=== PATIENT | female | born 1960 | race Two or more races ===

== ENCOUNTER 2016-11-23 16:38 | Emergency (ER) | payer OTHER ==
[~2016-11-23] VITALS: Ht 129.5 cm; Wt 71.7 kg
[~2016-11-23 16:38] MED LIST: AFRIN NASAL SPR30 ML NASAL; ALBUTEROL SULF8.5 GM INH; ATARAX25 MG ORAL; AZITHROMYCIN250 MG ORAL; AZITHROMYCIN250 MG PO; COLACE250 MG PO; IBUPROFEN600 MG ORAL; PROMETHAZINE-D118 ML ORAL; TYLENOL EXTRA500 MG ORAL; VICODIN 5-5001 EACH PO
[2016-11-23] MEDS ORDERED: PROMETHAZINE-D118 ML ORAL (18:20)
[2016-11-23] MEDS ORDERED: PROAIR HFA8.5 GM INH (18:20)
[2016-11-23] MEDS ORDERED: PREDNISONE20 MG ORAL (18:20)
[2016-11-23 18:28] VITALS: BP 133/75
--- NOTE | 2016-11-23 21:38 | Emergency Room Report ---
History of Present Illness General Chief Complaint: Upper Respiratory Illness Source: Patient Present Illness [facility] The patient is a 56-year-old female presenting for 2 days of productive cough, subjective fevers, and myalgia. The patient states that she gets bronchitis annually and this feels the same. She denies any sick contacts or recent travel. The patient states that she experiences an 8/10 dull ache to the chest and back which occurs only with coughing. The patient has tried over-the- counter cough medications which have not helped. The patient denies other symptoms including nausea, vomiting, headache, dizziness, neck pain or stiffness , chest pain, shortness of breath Allergies: Coded Allergies: PENICILLINS (Verified Allergy, Unknown, Rash, 08/30/16) Patient History Past Medical History: see triage record Pertinent Family History: none Now: No Reviewed Nursing Documentation: PMH: Agreed, PSxH: Agreed Nursing Documentation-PMH Past Medical History: No History, Except For Hx Cardiac Problems: No - hysterectomy Hx Gastrointestinal Problems: Yes - gerd constipation Review of Systems All Other Systems: negative except mentioned in HPI Physical Exam Vital Signs Date Time Temp Pulse Resp B/P Pulse Ox O2 Delivery O2 Flow Rate FiO2 11/23/16 17:00 98.2 82 16 141/80 100 Room Air Sp02 EP Interpretation: reviewed, normal General Appearance: no apparent distress, alert, GCS 15, non-toxic Head: normocephalic, atraumatic Eyes: bilateral eye PERRL, bilateral eye normal inspection ENT: hearing grossly normal, normal pharynx, no angioedema, normal voice, uvula midline Neck: full range of motion, supple/symm/no masses Respiratory: chest non-tender, normal breath sounds, speaking full sentences, wheezing - minimal diffuse Cardiovascular #1: regular rate, rhythm, no edema Musculoskeletal: back normal, gait/station normal, normal range of motion, non- tender Neurologic: alert, oriented x3, responsive, motor strength/tone normal, sensory intact, speech normal Psychiatric: judgement/insight normal, memory normal, mood/affect normal, no suicidal/homicidal ideation Skin: normal color, no rash, warm/dry, well hydrated Lymphatic: no adenopathy Medical Decision Making PA Attestation Dr. Lomax is my supervising physician. Patient management was discussed with my supervising physician Diagnostic Impression: Primary Impression: Bronchitis ER Course The patient is a 56-year-old female presenting for 2 days of productive cough, subjective fevers, and myalgia Differential diagnosis include but not limited to pharyngitis, sinusitis, AOM, bronchitis, PNA PE: afebrile. No apparent distress. No TTP over maxillary or frontal sinuses. Lungs: minimal wheezing bilat. No accessory muscle use. Heart: RRR, no abnormal heart sounds Ears: external auditory canal clear. Non erythematous. Bilat TM intact. Cone of light present bilat. No bulging of TM. No serous fluid seen. no nasal D/C No tonsillar exudate. Uvula midline.Oropharynx non erythematous Chest x-ray is unremarkable The patient will be treated with a prescription for Prednisone, cough medication , and albuterol. ER precautions are given Chest X-Ray Diagnostic Results EP Interpretation: Yes Findings: no consolidation, no effusion, no pneumothorax, no acute cardiopulmonary disease Number of Views: 1 PA Scribe Text I am acting as scribe for my supervising physician. My supervising physician's interpretation of the chest xrays are there is no consolidation, no effusion, no acute cardiopulmonary disease, no pneumothorax Last Vital Signs Date Time Temp Pulse Resp B/P Pulse Ox O2 Delivery O2 Flow Rate FiO2 11/23/16 18:28 90 16 133/75 98 Room Air 11/23/16 18:28 97.9 Status: improved Disposition: HOME, SELF-CARE Condition: Improved Scripts D-Methorphan Hb/Prometh Hcl* (PROMETHAZINE-DM SYRUP*) 118 Ml Syrup 5 ML ORAL Q6H Y for For Cough, #118 ML 0 Refills Prov: TERZIAN,MARY P.A. 11/23/16 Prednisone* (PREDNISONE*) 20 Mg Tablet 20 MG ORAL DAILY, #5 TAB 0 Refills Prov: TERZIAN,MARY P.A. 11/23/16 Albuterol Sulfate* (PROAIR HFA*) 8.5 Gm Hfa.aer.ad 2 PUFFS INH Q6H, #8.5 GM 0 Refills Prov: TERZIAN,MARY P.A. 11/23/16 Referrals: [facility] (PCP) Patient Instructions: Acute Bronchitis Additional Instructions: I discussed my findings with the patient. All questions and concerns have been answered. Treatment and medication compliance have been addressed. I advised the patient that they need to follow up with PMD in 3-5 days. Return to ED if pain remains or worsens, cough worsens or remains, you notice blood in your sputum, you notice wheezing, you experience a fever, or if needed for any reason. Patient verbalized understanding of discharge instructions. MARY CARTER Nov 23, 2016 21:38
--- NOTE | 2016-11-24 10:04 | Diagnostic Imaging Report ---
Indication: COUGH Technique: One view of the chest Comparison: none Findings: Lungs and pleural spaces are clear. Heart size is normal . No significant change Impression: No acute process
[2016-11-24] MEDS ORDERED: ROBITUSSIN COU118 M4 PO (13:18)
[2016-11-24] MEDS ORDERED: GUAIFENESIN DM118 M1 ORAL (13:18)
== END 2016-11-23 18:28 | disposition home or self-care (01) ==
LOC: EMR 17:28
DX: J40 Bronchitis, not specified as acute or chronic (principal); Z90.710 Acquired absence of both cervix and uterus; K21.9 Gastro-esophageal reflux disease without esophagitis
CPT/HCPCS: 71010; 99284

== ENCOUNTER 2017-02-13 09:26 | Emergency (ER) | payer OTHER ==
[~2017-02-13] VITALS: Ht 165.1 cm; Wt 72.6 kg
[~2017-02-13 09:26] MED LIST changes: +GUAIFENESIN DM118 M1 ORAL; +PREDNISONE20 MG ORAL; +PROAIR HFA8.5 GM INH; +ROBITUSSIN COU118 M4 PO
[2017-02-13 10:23] VITALS: BP 144/75
[2017-02-13] MEDS ORDERED: GUAIFENESIN DM118 M1 ORAL (10:25)
[2017-02-13] MEDS ORDERED: ALBUTEROL SULF8.5 GM INH (10:25)
[2017-02-13] MEDS ORDERED: PREDNISONE20 MG ORAL (10:25)
--- NOTE | 2017-02-13 10:46 | Emergency Room Report ---
History of Present Illness General Chief Complaint: Upper Respiratory Illness Source: Patient Present Illness HPI 56-year-old female presents to ED complaining of cough times one week. States cough is productive with yellow phlegm. Denies fevers or chills. Denies chest pain or shortness of breath. Patient states that when she coughs a lot she gets a headache. Throbbing, 8/10, nonradiating. Denies photophobia, blurry vision, nausea or vomiting. Denies sick contacts or recent travel. Notes history of frequent bronchitis. Feels the same. No other aggravating or relieving factors. Denies any other associated symptoms Allergies: Coded Allergies: PENICILLINS (Verified Allergy, Unknown, Rash, 08/30/16) Patient History Past Medical History: GERD Pertinent Family History: none Social History: Denies: alcohol use, drug use, smoking Now: No Immunizations: UTD Reviewed Nursing Documentation: PMH: Agreed, PSxH: Agreed Nursing Documentation-PMH Past Medical History: No Stated History Hx Cardiac Problems: No - hysterectomy Hx Gastrointestinal Problems: Yes - gerd constipation Review of Systems All Other Systems: negative except mentioned in HPI Physical Exam Vital Signs Date Time Temp Pulse Resp B/P Pulse Ox O2 Delivery O2 Flow Rate FiO2 02/13/17 09:52 98.1 62 22 144/75 97 Room Air Sp02 EP Interpretation: reviewed, normal General Appearance: no apparent distress, alert, GCS 15, non-toxic Head: normocephalic, atraumatic Eyes: bilateral eye PERRL, bilateral eye normal inspection ENT: hearing grossly normal, normal pharynx, no angioedema, normal voice Neck: full range of motion, supple/symm/no masses Respiratory: chest non-tender, lungs clear, normal breath sounds, speaking full sentences Cardiovascular #1: regular rate, rhythm, no edema Cardiovascular #2: 2+ carotid (R), 2+ carotid (L), 2+ radial (R), 2+ radial (L) , 2+ dorsalis pedis (R), 2+ dorsalis pedis (L) Gastrointestinal: normal bowel sounds, non tender, soft, non-distended, no guarding, no rebound Rectal: deferred Genitourinary: normal inspection, no CVA tenderness Musculoskeletal: back normal, gait/station normal, normal range of motion, non- tender Neurologic: alert, oriented x3, responsive, motor strength/tone normal, sensory intact, speech normal Psychiatric: judgement/insight normal, memory normal, mood/affect normal, no suicidal/homicidal ideation Reflexes: 3+ bicep (R), 3+ bicep (L), 3+ tricep (R), 3+ tricep (L), 3+ knee (R) , 3+ knee (L) Skin: normal color, no rash, warm/dry, well hydrated Lymphatic: no adenopathy Medical Decision Making Diagnostic Impression: Primary Impression: Bronchitis ER Course Hospital Course 56-year-old female presents to ED complaining of cough x 1 week with headache Differential diagnoses include: URI, pharyngitis, otitis media, asthma Clinical course Patient placed on stretcher. After initial history, physical exam reveals a middle aged female in no acute distress. Bilateral TM unremarkable. No pharyngeal erythema. No tonsillar exudates. No lymphadenopathy. lungs clear. abdomen soft. Clinical findings consistent with bronchitis. Reassurance given to parents. treatment is supportive therapy Diagnosis - bronchitis Stable and discharged home with Rx prednisone, albuterol, cough syrup. Instructed to followup with PMD. Return to ED if symptoms recur or worsen Last Vital Signs Date Time Temp Pulse Resp B/P Pulse Ox O2 Delivery O2 Flow Rate FiO2 02/13/17 10:39 98.1 62 22 144/75 97 Room Air Status: improved Disposition: HOME, SELF-CARE Condition: Stable Scripts Prednisone* (PREDNISONE*) 20 Mg Tablet 40 MG ORAL DAILY, #10 TAB Prov: ABIGAIL YOUSIF M.D. 02/13/17 Guaifenesin/Dextromethorphan (Guaifenesin Dm Syrup) 5 Ml Syrup 1 TSP ORAL Q8H, #118 ML 0 Refills Prov: ABIGAIL YOUSIF M.D. 02/13/17 Albuterol Sulfate* (ALBUTEROL SULFATE MDI*) 8.5 Gm Hfa.aer.ad 2 PUFF INH Q4H Y for cough/wheezing, #1 EA 0 Refills Prov: ABIGAIL YOUSIF M.D. 02/13/17 Referrals: [facility] (PCP) Patient Instructions: Acute Bronchitis, [id number] ABIGAIL YOUSIF M.D. Feb 13, 2017 10:46
== END 2017-02-13 10:43 | disposition home or self-care (01) ==
LOC: EMR 10:20
DX: J20.9 Acute bronchitis, unspecified (principal); R51 Headache; Z88.0 Allergy status to penicillin; K21.9 Gastro-esophageal reflux disease without esophagitis; Z90.710 Acquired absence of both cervix and uterus
CPT/HCPCS: 99284

== ENCOUNTER 2017-07-09 17:51 | Emergency (ER) | payer OTHER ==
[~2017-07-09] VITALS: Ht 142.2 cm; Wt 65.8 kg
[2017-07-09] MEDS ORDERED: NKM (17:57)
--- NOTE | 2017-07-09 18:01 | Emergency Room Report ---
History of Present Illness General Chief Complaint: Skin Rash/Abscess Source: Patient Present Illness HPI 56 YO Female presents to the ED c/o rash around her waist x 3 days. pt. reports minimal relief from PO Benadryl this am , with return of symptoms after several house. pt. denies fevers or chills. she reports a hoarse voice x 1 week. pt. reports hx of similar rash several years ago she was told was an allergic reaction. pt. denies throat pain, neck pain/stiffness. Denies lesions/rashes elsewhere on the body. Denies new medications or body washes or creams. Denies swelling of the lips, tongue , throat or airway. Denies wheezing, or shortness of breath. Denies recent travel, recent illness or ill contacts. denies blisters, oral lesions, or sloughing of the skin. Allergies: Coded Allergies: PENICILLINS (Verified Allergy, Unknown, Rash, 08/30/16) Patient History Past Medical History: see triage record Past Surgical History: none Pertinent Family History: none Last Menstrual Period: Hyst Now: No Reviewed Nursing Documentation: PMH: Agreed, PSxH: Agreed Nursing Documentation-PMH Past Medical History: No Stated History Hx Cardiac Problems: No - hysterectomy Hx Gastrointestinal Problems: Yes - gerd constipation Review of Systems All Other Systems: negative except mentioned in HPI Physical Exam Vital Signs Date Time Temp Pulse Resp B/P (MAP) Pulse Ox O2 Delivery O2 Flow Rate FiO2 07/09/17 17:53 97.9 74 16 159/84 99 Room Air Sp02 EP Interpretation: reviewed, normal General Appearance: no apparent distress, alert, GCS 15, non-toxic Head: normocephalic, atraumatic Eyes: bilateral eye normal inspection, bilateral eye PERRL ENT: hearing grossly normal, normal pharynx, no angioedema, normal voice, other - no oral lesions, no swelling of the lips or tongue Neck: full range of motion, other - no stridor Respiratory: chest non-tender, lungs clear, normal breath sounds, no wheezing, speaking full sentences Cardiovascular #1: regular rate, rhythm, normal capillary refill Gastrointestinal: non tender, soft, no guarding, no rebound, other - circumferential very localized rash around the waist, blanching erythematous plaques, no blisters, no vesicles. Rectal: deferred Musculoskeletal: back normal, gait/station normal, normal range of motion Neurologic: alert, oriented x3, responsive, motor strength/tone normal, sensory intact, speech normal Skin: normal color, warm/dry, well hydrated, rash - circumferential very localized rash around the waist, blanching erythematous plaques, no blisters, no vesicles. Medical Decision Making PA Attestation Dr. diaz is my supervising Physician whom patient management has been discussed with. Diagnostic Impression: Primary Impression: Dermatitis Additional Impression: Rash and other nonspecific skin eruption ER Course 56 YO Female presents to the ED c/o rash around her waist x 3 days. pt. reports minimal relief from PO Benadryl this am , with return of symptoms after several house. pt. denies fevers or chills. she reports a hoarse voice x 1 week. pt. reports hx of similar rash several years ago she was told was an allergic reaction. pt. denies throat pain, neck pain/stiffness. Denies lesions/rashes elsewhere on the body. Denies new medications or body washes or creams. Denies swelling of the lips, tongue , throat or airway. Denies wheezing, or shortness of breath. Denies recent travel, recent illness or ill contacts. denies blisters, oral lesions, or sloughing of the skin. Ddx considered but are not limited to cellulitis, scabies, shingles, varicella, dermatitis, urticaria, eczema, tinea, viral exanthem, SJS Vital signs: are WNL, pt. is afebrile H&PE are most consistent with a contact dermatitis due to circumferential very localized pattern around the waist. no evidence of airway compromise, or anaphylaxis at this time. -- rash appears to be localized to area where waist band of ptSarah torres is located. ORDERS: none required at this time, the diagnosis is clinical ED INTERVENTIONS: -Benadryl IM -Solu-medrol IM - Lidocaine Cream topically pt. reports moderate improvement in her symptoms, she states the itching has for the most part subsided. rash is still visible. - d/w pt. conservative treatment, and to follow up with a primary care provider for Dermatology referral. pt given a list of primary care clinics for follow up. d/w pt. to return to the ED with worsening or new symptoms. DISCHARGE: At this time pt. is stable for d/c to home. Will provide printed patient care instructions, and any necessary prescriptions. Care plan and follow up instructions have been discussed with the patient prior to discharge. Last Vital Signs Date Time Temp Pulse Resp B/P (MAP) Pulse Ox O2 Delivery O2 Flow Rate FiO2 07/09/17 17:53 97.9 74 16 159/84 99 Room Air Disposition: HOME, SELF-CARE Condition: Stable Scripts Lidocaine (TOPICAINE 5) 113 Gm Gel..gram. 1 APPLIC TP TID, #113 GM Prov: Vivian Downs 07/09/17 Prednisone* (PREDNISONE*) 20 Mg Tablet 40 MG ORAL DAILY for 5 Days, #10 TAB Prov: Vivian Downs 07/09/17 Hydroxyzine HCl (Hydroxyzine HCl) 25 Mg Tablet 25 MG ORAL FOUR TIMES A DAY, #30 TAB Prov: Vivian Downs 07/09/17 Triamcinolone Acet (Triamcinolone Acetonide) 80 Gm Cream..g. 1 APPLIC APPLIC BID, #80 GM Prov: Vivian Downs 07/09/17 Patient Instructions: Rash Additional Instructions: Take medications as directed. Follow up with a Primary Care Provider in 3-5 days, even if your symptoms have resolved. --Please review list of primary care clinics, if you do not already have a primary care provider Return sooner to ED if new symptoms occur, or current symptoms become worse. Do not drink alcohol, drive, or operate heavy machinery while taking Hydroxyzine as this may cause drowsiness. - Please note that this Emergency Department Report was dictated using [employer] operator technology software, occasionally this can lead to erroneous entry secondary to interpretation by the dictation equipment. Vivian Downs Jul 09, 2017 18:01
[2017-07-09] MEDS ORDERED: DiphenhydrAMINE 50mg/ml Inj IM ONE (18:15)
[2017-07-09] MEDS ORDERED: Solu-MEDROL 125mg Inj IM ONE (18:15)
[2017-07-09] MEDS ORDERED: ATARAX25 MG ORAL (19:00)
[2017-07-09] MEDS ORDERED: KENALOG 0.1% CR15 GM APPLIC (19:00)
[2017-07-09] MEDS ORDERED: PREDNISONE20 MG ORAL (19:00)
[2017-07-09] MEDS ORDERED: TOPICAINE 5113 GM TP (19:00)
[2017-07-09 19:20] VITALS: BP 144/80
== END 2017-07-09 19:20 | disposition home or self-care (01) ==
LOC: EMR 18:40
DX: L30.9 Dermatitis, unspecified (principal); K21.9 Gastro-esophageal reflux disease without esophagitis; Z90.710 Acquired absence of both cervix and uterus; Z88.0 Allergy status to penicillin
CPT/HCPCS: 96372; 99284; J1200; J2930

== ENCOUNTER 2017-07-25 14:42 | Emergency (ER) | payer OTHER ==
[~2017-07-25] VITALS: Ht 142.2 cm; Wt 70.3 kg
[~2017-07-25 14:42] MED LIST changes: +KENALOG 0.1% CR15 GM APPLIC; +NKM; +TOPICAINE 5113 GM TP
[2017-07-25 15:38] LABS: APPEARANCE,URINE CLEAR; KETONES,URINE NEGATIVE (NEGATIVE); LEUKOCYTE ESTERASE ,URINE 1+ (NEGATIVE); NITRITE,URINE NEGATIVE (NEGATIVE); PH,URINE 6 (4.5-8.0); PROTEIN,URINE NEGATIVE (NEGATIVE); UROBILINOGEN,URINE NORMAL MG/DL (0.0-1.0)
--- NOTE | 2017-07-25 15:40 | Emergency Room Report ---
History of Present Illness General Chief Complaint: Back Pain-No Injury Source: Patient Present Illness HPI 56-year-old female with no significant past medical history p/w back pain for 3 days. Patient states pain started when she woke up. Pain is localized to the lateral lower back, sharp in nature, radiating down both leg. Movement worsens pain, especially getting up from sitting position. There are no alleviating factors. Patient took pain medications with minimal relief. Patient states that she has had this similar back pain in the past, about 3 times Denies trauma. Denies lower extremity weakness/numbness, no bowel/bladder retention or incontinence, saddle anesthesia. Denies fever, chills, abdominal pain, n/v. No history of IVDA Also complaining of mild suprapubic pain and burning on urination. Denies any fever chills chest pain shortness of breath Allergies: Coded Allergies: PENICILLINS (Verified Allergy, Unknown, Rash, 08/30/16) Patient History Past Medical History: see triage record Past Surgical History: none Pertinent Family History: none Last Menstrual Period: n\a Reviewed Nursing Documentation: PMH: Agreed, PSxH: Agreed Nursing Documentation-PMH Past Medical History: No History, Except For Hx Cardiac Problems: No - hysterectomy Hx Gastrointestinal Problems: Yes - gerd constipation Review of Systems All Other Systems: negative except mentioned in HPI Physical Exam Vital Signs Date Time Temp Pulse Resp B/P (MAP) Pulse Ox O2 Delivery O2 Flow Rate FiO2 07/25/17 15:05 98.2 84 18 130/87 99 Room Air Sp02 EP Interpretation: reviewed, normal General Appearance: well appearing, alert, GCS 15, non-toxic, mild distress Head: normocephalic, atraumatic Eyes: bilateral eye normal inspection, bilateral eye PERRL, bilateral eye EOMI ENT: normal ENT inspection, normal pharynx, normal voice, moist mucus membranes Neck: normal inspection, full range of motion, supple Respiratory: normal inspection, lungs clear, normal breath sounds, no respiratory distress, no retraction, no wheezing, speaking full sentences, chest symmetrical Cardiovascular #1: normal inspection, regular rate, rhythm, normal capillary refill Cardiovascular #2: 2+ radial (R), 2+ radial (L) Gastrointestinal: normal inspection, non tender, soft, non-distended, no guarding Musculoskeletal: other - Bilateral paraspinal lower lumbar tenderness, no midline tenderness, full range of motion, able to bear weight on both lower extremities Neurologic: normal inspection, alert, oriented x3, responsive, motor strength/ tone normal, sensory intact, normal gait, speech normal Psychiatric: normal inspection, judgement/insight normal, memory normal Skin: normal inspection, normal color, no rash, warm/dry, well hydrated, normal turgor Medical Decision Making ER Course 56-year-old female p/w back pain for 3 days DDX: Likely musculoskeletal back pain vs. muscular strain vs. sciatica Lumbar fracture is unlikely given patients age, no midline tenderness, no history of trauma, and that patient is ambulatory. Therefore, at this time no imaging is indicated Serious diagnoses such as cord compression, epidural abscess is unlikely in this patient given the clinical scenario and abscess of neurological symptoms or findings. Patient appears nontoxic. Plan: Motrin ER course: Patient has remained nontoxic appearing and ambulatory in the ED. Pain improved w/ medications Disposition: Patient will be discharged to home with prescription of motrin and robaxin. Patient cautioned of the effects of robaxin including possible impairment of physical or mental abilities. Patient was instructed to refrain from operating machinery or driving. Patient is also cautioned on the GI effects of motrin and to take sparingly. Patient verbalized understanding. Strict precautions discussed with patient on when to emergently return to the ED which includes severe/worsening back pain, leg weakness/numbness, urinary retention/incontinence, fever or chills, which may indicate severe illness. Patient is to follow up with their PMD within 5 days. Patient agrees with plan. Please note that this Emergency Department Report was dictated using [employer] school driver technology software, occasionally this can lead to erroneous entry secondary to interpretation by the dictation equipment. Laboratory Tests Test 07/25/17 15:14 Urine Color Pale yellow Urine Appearance Clear Urine pH 6 (4.5-8.0) Urine Specific [place] 1.010 (1.005-1.035) Urine Protein Negative (NEGATIVE) Urine Glucose (UA) Negative (NEGATIVE) Urine Ketones Negative (NEGATIVE) Urine Occult Blood 1+ (NEGATIVE) H Urine Nitrite Negative (NEGATIVE) Urine Bilirubin Negative (NEGATIVE) Urine Urobilinogen Normal MG/DL (0.0-1.0) Urine Leukocyte Esterase 1+ (NEGATIVE) H Urine RBC 0-2 /HPF (0 - 2) Urine WBC 0-2 /HPF (0 - 2) Urine Squamous Epithelial Cells Occasional /LPF Urine Bacteria Occasional /HPF (NONE) Last Vital Signs Date Time Temp Pulse Resp B/P (MAP) Pulse Ox O2 Delivery O2 Flow Rate FiO2 07/25/17 15:05 98.2 84 18 130/87 99 Room Air Scripts Ibuprofen* (MOTRIN*) 600 Mg Tablet 600 MG ORAL Q8H Y for For Pain, #30 TAB 0 Refills Prov: Sue Mock M.D. 07/25/17 Methocarbamol* (ROBAXIN-750*) 750 Mg Tablet 750 MG PO QID, #28 TAB 0 Refills Prov: Sue Mock M.D. 07/25/17 Referrals: [facility] ([facility]P) Sue Mock M.D. Jul 25, 2017 15:40
[2017-07-25 15:52] LABS: RBC,URINE 0-2 /HPF (0 - 2)
[2017-07-25] MEDS ORDERED: IBUPROFEN600 MG ORAL (15:52)
[2017-07-25] MEDS ORDERED: ROBAXIN-750750 MG PO (15:52)
[2017-07-25 15:53] LABS: BACTERIA,URINE OCCASIONAL /HPF; SQUAMOUS EPITHELIAL CELL,UR OCCASIONAL /LPF (NONE/OCC); WBC,URINE 0-2 /HPF (0 - 2)
[2017-07-25 16:20] VITALS: BP 128/86
[2017-07-25 16:45] VITALS: BP 128/86
== END 2017-07-25 16:50 | disposition home or self-care (01) ==
LOC: EMR 15:13
DX: M54.5 Low back pain (principal); Z88.0 Allergy status to penicillin; K21.9 Gastro-esophageal reflux disease without esophagitis
CPT/HCPCS: 81001; 99284

== ENCOUNTER 2017-09-21 12:07 | Emergency (ER) | payer OTHER ==
[~2017-09-21] VITALS: Ht 142.2 cm; Wt 68.0 kg
[~2017-09-21 12:07] MED LIST changes: +ROBAXIN-750750 MG PO
[2017-09-21 12:13] VITALS: BP 146/76
[2017-09-21] MEDS ORDERED: IBUPROFEN600 MG ORAL (13:28)
[2017-09-21 13:35] VITALS: BP 138/72
--- NOTE | 2017-09-21 14:40 | Diagnostic Imaging Report ---
Indication: Pain Technique: XRAY Foot Complete L Comparison: None Findings: No acute fracture or dislocation. 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 Joint spaces otherwise are maintained. No focal soft tissue defect is appreciated. No radiopaque foreign body seen. Impression: No acute fracture or dislocation.
--- NOTE | 2017-09-21 21:32 | Emergency Room Report ---
History of Present Illness General Chief Complaint: Pain Source: Patient Present Illness HPI The patient is a 57-year-old female presenting for left foot pain for the past week. Pain has been increasing and is now described as an 8/10 sharp pain to the bottom of her foot. Worse with walking. She has tried ice and Motrin which temporarily helps. It returns with walking. She denies any injury to the area. She denies any radiating pain or other symptoms Allergies: Coded Allergies: PENICILLINS (Verified Allergy, Unknown, Rash, 08/30/16) Patient History Past Medical History: see triage record Pertinent Family History: none Reviewed Nursing Documentation: PMH: Agreed, PSxH: Agreed Nursing Documentation-PMH Past Medical History: No Stated History Hx Cardiac Problems: No - hysterectomy Hx Gastrointestinal Problems: Yes - gerd constipation Review of Systems All Other Systems: negative except mentioned in HPI Physical Exam Vital Signs Date Time Temp Pulse Resp B/P (MAP) Pulse Ox O2 Delivery O2 Flow Rate FiO2 09/21/17 12:13 97.9 16 146/76 98 Room Air 09/21/17 12:13 73 Sp02 EP Interpretation: reviewed, normal General Appearance: no apparent distress, alert, GCS 15, non-toxic Head: normocephalic, atraumatic Eyes: bilateral eye normal inspection, bilateral eye PERRL ENT: hearing grossly normal, normal pharynx, no angioedema, normal voice Musculoskeletal: normal range of motion, no calf tenderness, tender - plantar surface Neurologic: alert, oriented x3, responsive, motor strength/tone normal, sensory intact, speech normal Psychiatric: judgement/insight normal, memory normal, mood/affect normal, no suicidal/homicidal ideation Medical Decision Making PA Attestation Dr. Lomax is my supervising physician. Patient management was discussed with my supervising physician Diagnostic Impression: Primary Impression: Plantar fasciitis ER Course The patient is a 57-year-old female presenting for left foot pain for the past week. Ddx considered include but not limited to sprain/strain, fracture, contusion, plantar fasciitis Physical exam: No apparent distress Left foot appears unremarkable. No edema or ecchymosis. There is tenderness to palpation over plantar surface. Plantar arch appears somewhat flattened Normal gait X-ray of the left foot shows no acute findings The patient be discharged with prescription for pain medication. She is given rice instructions Other X-Ray Diagnostic Results Other X-Ray Diagnostic Results : X-Ray ordered: L foot # of Views/Limited Vs Complete: 3 View Indication: Pain EP Interpretation: Yes DARRIN Xray: Interpretation reviewed, by supervising MD, and agrees with findings. Interpretation: no dislocation, no soft tissue swelling, no fractures Impression: No acute disease Electronically Signed by: Daniel Carter PA-C Last Vital Signs Date Time Temp Pulse Resp B/P (MAP) Pulse Ox O2 Delivery O2 Flow Rate FiO2 09/21/17 13:35 97.9 82 16 138/72 98 Room Air Status: improved Disposition: HOME, SELF-CARE Condition: Improved Scripts Ibuprofen* (MOTRIN*) 600 Mg Tablet 600 MG ORAL Q6H Y for For Pain, #30 TAB Prov: DANIEL CARTER 09/21/17 Patient Instructions: Plantar Fasciitis Additional Instructions: I discussed my findings with the patient. All questions and concerns have been answered. Treatment and medication compliance have been addressed. I advised the patient that they need to follow up with PMD in 3-5 days. Return to ED if pain remains or worsens, numbness or tingling occurs, new rash is noticed, fever is noticed, or if needed for any reason. Patient verbalized understanding of discharge instructions. DANIEL CARTER Sep 21, 2017 21:32
== END 2017-09-21 13:38 | disposition home or self-care (01) ==
LOC: EMR 12:40
DX: M72.2 Plantar fascial fibromatosis (principal); Z88.0 Allergy status to penicillin
CPT/HCPCS: 99283

== ENCOUNTER 2017-10-20 10:57 | Emergency (ER) | payer OTHER ==
[~2017-10-20] VITALS: Ht 149.9 cm; Wt 54.4 kg
[2017-10-20 11:19] LABS: APPEARANCE,URINE CLEAR; BILIRUBIN, URINE NEGATIVE (NEGATIVE); COLOR,URINE PALE YELLOW; GLUCOSE, URINE (UA) NEGATIVE (NEGATIVE); KETONES,URINE NEGATIVE (NEGATIVE); LEUKOCYTE ESTERASE ,URINE NEGATIVE (NEGATIVE); NITRITE,URINE NEGATIVE (NEGATIVE); PH,URINE 6 (4.5-8.0); PROTEIN,URINE NEGATIVE (NEGATIVE); UROBILINOGEN,URINE NORMAL MG/DL (0.0-1.0)
[2017-10-20 11:22] VITALS: BP 156/68
[2017-10-20] MEDS ORDERED: Sodium Chloride 500ML 500 ML IV ONE (11:27)
[2017-10-20] MEDS ORDERED: Morphine Sulfate 4mg/ml Inj IVP ONE ×2 (11:30→14:00)
[2017-10-20 11:47] LABS: BASOPHILS % (AUTO) 0.6 % (0.0-2.0); EOSINOPHILS % (AUTO) 0.1 % (0.0-3.0); HEMATOCRIT 40.4 % (37.0-47.0); HEMOGLOBIN 13.5 G/DL (12.0-16.0); LYMPHOCYTES % (AUTO) 20.3 % (20.0-45.0); MEAN CORPUSCULAR VOLUME 82 FL (80-99); MONOCYTES % (AUTO) 6.2 % (1.0-10.0); NEUTROPHILS % (AUTO) 72.9 % (45.0-75.0); PLATELET COUNT 369 K/UL (150-450); RED BLOOD COUNT 4.95 M/UL (4.20-5.40); RED CELL DISTRIBUTION WIDTH 13.1 % (11.6-14.8); WHITE BLOOD COUNT 10.4 K/UL (4.8-10.8)
[2017-10-20 12:03] LABS: ANION GAP 9 mmol/L (5-15); BLOOD UREA NITROGEN 16 mg/dL (7-18); CALCIUM 8.9 MG/DL (8.5-10.1); CARBON DIOXIDE 25 MMOL/L (21-32); CHLORIDE 104 MMOL/L (98-107); CREATININE 0.6 MG/DL (0.55-1.30); SODIUM 138 MMOL/L (136-145)
[2017-10-20 12:06] LABS: ALANINE AMINOTRANSFERASE 14 U/L (12-78); ALBUMIN 3.5 G/DL (3.4-5.0); ALBUMIN/GLOBULIN RATIO 0.9 (1.0-2.7); ALKALINE PHOSPHATASE 92 U/L (46-116); ASPARTATE AMINO TRANSFERASE 6 U/L (15-37); BILIRUBIN,TOTAL 0.3 MG/DL (0.2-1.0)
[2017-10-20] MEDS ORDERED: COLACE100 MG ORAL (15:00)
[2017-10-20] MEDS ORDERED: MAGNESIUM CITR296 M1 PO (15:00)
[2017-10-20 15:10] VITALS: BP 135/81
[2017-10-20 15:12] VITALS: BP 135/81
--- NOTE | 2017-10-20 15:14 | Emergency Room Report ---
History of Present Illness General Chief Complaint: General Complaint Source: Patient, Medical Record Present Illness HPI 57-year-old female presents ED for evaluation. Complaining of left-sided abdominal pain for last 4 days. Sharp, 8/10, nonradiating. Denies nausea or vomiting. Denies chest pain or shortness of breath. No other aggravating relieving factors. Denies any other associated symptoms Allergies: Coded Allergies: PENICILLINS (Verified Allergy, Unknown, Rash, 08/30/16) Patient History Past Medical History: GERD Past Surgical History: none Pertinent Family History: none Social History: Denies: smoking, alcohol use, drug use Last Menstrual Period: hysterectomy 2012 Now: No Immunizations: UTD Reviewed Nursing Documentation: PMH: Agreed, PSxH: Agreed Nursing Documentation-PMH Past Medical History: No History, Except For Hx Cardiac Problems: No - hysterectomy Hx Gastrointestinal Problems: Yes - gerd constipation Review of Systems All Other Systems: negative except mentioned in HPI Physical Exam Vital Signs Date Time Temp Pulse Resp B/P (MAP) Pulse Ox O2 Delivery O2 Flow Rate FiO2 10/20/17 11:02 97.8 73 18 156/68 95 Room Air 97.9 Sp02 EP Interpretation: reviewed, normal General Appearance: no apparent distress, alert, GCS 15, non-toxic, obese Head: normocephalic Eyes: bilateral eye normal inspection, bilateral eye PERRL ENT: normal ENT inspection Neck: normal inspection Respiratory: chest non-tender, lungs clear, normal breath sounds, speaking full sentences Cardiovascular #1: regular rate, rhythm, no edema Gastrointestinal: normal bowel sounds, soft, non-distended, no guarding, no rebound, tenderness - L sided Rectal: deferred Genitourinary: no CVA tenderness Musculoskeletal: normal inspection Neurologic: alert, oriented x3, responsive, motor strength/tone normal, sensory intact, speech normal Psychiatric: normal inspection Skin: normal inspection Lymphatic: normal inspection Medical Decision Making Diagnostic Impression: Primary Impression: Constipation Qualified Codes: K59.00 - Constipation, unspecified Additional Impression: Abdominal pain Qualified Codes: R10.12 - Left upper quadrant pain ER Course Hospital Course 57-year-old F presents to ED with abdominal pain Differential diagnosis includes-appendicitis, cholecystitis, small bowel obstruction, gastritis, Clinical course Patient placed on stretcher. After initial history and physical I ordered labs , IV fluids, pain medications and CT Labs - no leukocytosis, electrolytes ok, LFTs normal, UA unremarkable CT - fecal impactino noted. Appendix enlarged but no signs of appendicitis On reassessment patient did not have any right lower quadrant tenderness. Discussed findings with surgery who agreed that given no pain in the right lower quadrant unlikely appendicitis. Discussed findings with patient care will be discharged on stool softeners I feel this is a highly complex case requiring extensive working including EKG/ Rhythm strip, Xray/CT/US, Blood/urine lab work, repeat exams while in ED, and administration of strong opiates/narcotics for pain control, admission to hospital or close patient follow up. Diagnosis - constipation Stable and discharged to home with Rx Mag citrate, Colace. instructed on high- fiber diet. Followup with PMD. Return to ED if symptoms recur or worsen Labs Test 10/20/17 11:11 10/20/17 11:40 Urine Color Pale yellow Urine Appearance Clear Urine pH 6 (4.5-8.0) Urine Specific [place] 1.020 (1.005-1.035) Urine Protein Negative (NEGATIVE) Urine Glucose (UA) Negative (NEGATIVE) Urine Ketones Negative (NEGATIVE) Urine Occult Blood Negative (NEGATIVE) Urine Nitrite Negative (NEGATIVE) Urine Bilirubin Negative (NEGATIVE) Urine Urobilinogen Normal MG/DL (0.0-1.0) Urine Leukocyte Esterase Negative (NEGATIVE) White Blood Count 10.4 K/UL (4.8-10.8) Red Blood Count 4.95 M/UL (4.20-5.40) Hemoglobin 13.5 G/DL (12.0-16.0) Hematocrit 40.4 % (37.0-47.0) Mean Corpuscular Volume 82 FL (80-99) Mean Corpuscular Hemoglobin 27.2 PG (27.0-31.0) Mean Corpuscular Hemoglobin Concent 33.3 G/DL (32.0-36.0) Red Cell Distribution Width 13.1 % (11.6-14.8) Platelet Count 369 K/UL (150-450) Mean Platelet Volume 6.1 FL (6.5-10.1) Neutrophils (%) (Auto) 72.9 % (45.0-75.0) Lymphocytes (%) (Auto) 20.3 % (20.0-45.0) Monocytes (%) (Auto) 6.2 % (1.0-10.0) Eosinophils (%) (Auto) 0.1 % (0.0-3.0) Basophils (%) (Auto) 0.6 % (0.0-2.0) Sodium Level 138 MMOL/L (136-145) Potassium Level 4.0 MMOL/L (3.5-5.1) Chloride Level 104 MMOL/L (98-107) Carbon Dioxide Level 25 MMOL/L (21-32) Anion Gap 9 mmol/L (5-15) Blood Urea Nitrogen 16 mg/dL (7-18) Creatinine 0.6 MG/DL (0.55-1.30) Estimat Glomerular Filtration Rate > 60 mL/min (>60) Glucose Level 111 MG/DL (74-106) Calcium Level 8.9 MG/DL (8.5-10.1) Total Bilirubin 0.3 MG/DL (0.2-1.0) Aspartate Amino Transf (AST/SGOT) 6 U/L (15-37) Alanine Aminotransferase (ALT/SGPT) 14 U/L (12-78) Alkaline Phosphatase 92 U/L (46-116) Total Protein 7.2 G/DL (6.4-8.2) Albumin 3.5 G/DL (3.4-5.0) Globulin 3.7 g/dL Albumin/Globulin Ratio 0.9 (1.0-2.7) Lipase 93 U/L (73-393) CT/MRI/US Diagnostic Results CT/MRI/US Diagnostic Results : Imaging Test Ordered: CT A/P Impression moderate fecal impaction. minimally enlarged appendix. no signs of appendicitis Last Vital Signs Date Time Temp Pulse Resp B/P (MAP) Pulse Ox O2 Delivery O2 Flow Rate FiO2 10/20/17 14:44 97.9 10/20/17 11:22 18 156/68 95 Room Air 10/20/17 11:02 73 Status: improved Disposition: HOME, SELF-CARE Condition: Stable Scripts Magnesium Citrate (MAGNESIUM CITRATE) 296 Ml Solution 150 ML PO DAILY for 2 Days, #296 ML Prov: ABIGAIL YOUSIF M.D. 10/20/17 Docusate Sodium* (COLACE*) 100 Mg Capsule 100 MG ORAL THREE TIMES A DAY for 30 Days, CAP Prov: ABIGAIL YOUSIF M.D. 10/20/17 Patient Instructions: Constipation, Adult, [id number], Appendicitis, Easy-to- Read ABIGAIL YOUSIF M.D. Oct 20, 2017 15:14
--- NOTE | 2017-10-21 09:49 | Diagnostic Imaging Report ---
Indication: Abdominal pain Technique: Continuous helical transaxial imaging of the abdomen and pelvis was obtained from the lung bases to the pubic symphysis during intravenous contrast administration. Coronal 2-D reformats were also obtained. Study obtained in a Siemens sensation [address] Automatic Exposure Control was utilized. Total Dose length Product (DLP): 858.[address] Dose Index Volume (CTDIvol): 18.16 mGy Comparison: 10/04/2011 Findings: The lung bases are essentially clear. Aorta is calcified. There are multiple gallstones which are not seen previously. The liver is low in density consistent with fatty infiltration. Spleen is unremarkable. Adrenal glands are unremarkable. There is no hydronephrosis or renal stones. Pancreas appears normal. The appendix is normal in appearance. Urinary bladder is unremarkable. IMPRESSION: No acute findings Minor discrepancy with the preliminary reading by [facility]. The preliminary report suggests a possibility of early acute appendicitis. I do not see evidence of this. Please correlate clinically. The CT scanner at [facility] is accredited by the [employer] and the scans are performed using dose optimization techniques as appropriate to a performed exam including Automatic Exposure control.
== END 2017-10-20 15:12 | disposition home or self-care (01) ==
LOC: EMR 11:32
DX: R10.9 Unspecified abdominal pain (principal); K21.9 Gastro-esophageal reflux disease without esophagitis; Z88.0 Allergy status to penicillin; Z90.710 Acquired absence of both cervix and uterus
CPT/HCPCS: 36415; 74177; 80053; 81003; 83690; 85025; 96374; 96375; 99284; J2270; J2405; J7040; Q9967

== ENCOUNTER 2018-01-01 01:28 | Emergency (ER) | payer OTHER ==
[~2018-01-01] VITALS: Ht 142.2 cm; Wt 70.3 kg
[~2018-01-01 01:28] MED LIST changes: +COLACE100 MG ORAL; +MAGNESIUM CITR296 M1 PO
--- NOTE | 2018-01-01 01:53 | Emergency Room Report ---
History of Present Illness General Chief Complaint: Nausea, Vomiting, and Diarrhea Source: Patient, Medical Record Present Illness HPI Is a 57-year-old female with no significant past medical history. She presents with [place] abdominal pain that started for 2 days. She has nausea and vomiting. Vomiting is nonbloody nonbilious. She has epigastric pain because of the vomiting. She also has profuse watery diarrhea. Pain in the abdomen is also diffuse in nature. Pain is 9 out of 10. [place] weakness. No urinary complaint. Allergies: Coded Allergies: PENICILLINS (Verified Allergy, Unknown, Rash, 08/30/16) Patient History Past Medical History: see triage record, old chart reviewed Past Surgical History: other Pertinent Family History: none Social History: Denies: smoking Now: No Immunizations: other Reviewed Nursing Documentation: PMH: Agreed; PSxH: Agreed Nursing Documentation-PMH Hx Cardiac Problems: No - hysterectomy Hx Gastrointestinal Problems: Yes - gerd constipation Review of Systems Eye: Denies: eye pain, blurred vision ENT: Denies: ear pain, nose congestion, throat swelling Respiratory: Denies: cough, shortness of breath Cardiovascular: Denies: chest pain, palpitations Gastrointestinal: Reports: abdominal pain, diarrhea, nausea, vomiting Musculoskeletal: Denies: back pain, joint pain Skin: Denies: rash Neurological: Denies: headache, numbness Endocrine: Denies: increased thirst, increased urine Hematologic/Lymphatic: Denies: easy bruising All Other Systems: negative except mentioned in HPI Physical Exam Vital Signs Date Time Temp Pulse Resp B/P (MAP) Pulse Ox O2 Delivery O2 Flow Rate FiO2 01/01/18 01:31 98.4 115 16 135/76 95 Room Air 98.4 vitals normal except for tachycardia Sp02 EP Interpretation: reviewed, normal General Appearance: well appearing, no apparent distress, alert Head: normocephalic, atraumatic Eyes: bilateral eye PERRL, bilateral eye EOMI ENT: hearing grossly normal, normal pharynx Neck: full range of motion, supple, no meningismus Respiratory: chest non-tender, lungs clear, normal breath sounds Cardiovascular #1: regular rate, rhythm, no murmur Gastrointestinal: normal bowel sounds, no mass, no organomegaly, no bruit, non- distended, tenderness - diffuse with most pain in right lower quadrant. Musculoskeletal: back normal, gait/station normal, normal range of motion Psychiatric: mood/affect normal Skin: warm/dry Medical Decision Making Diagnostic Impression: Primary Impression: Nausea, vomiting, and diarrhea Additional Impression: Enteritis ER Course pt with n/v/d and ct showed enteritis. no e/o sepsis, obstruction or acute abd. she felt better now. will dc home Lab Results Impression labs normal. CT/MRI/US Diagnostic Results CT/MRI/US Diagnostic Results : Imaging Test Ordered: ct abd and pelvis. Impression read by radiologist. enteritis. gallstones. Last Vital Signs Date Time Temp Pulse Resp B/P (MAP) Pulse Ox O2 Delivery O2 Flow Rate FiO2 01/01/18 01:31 98.4 115 16 135/76 95 Room Air 98.4 Status: improved Disposition: HOME, SELF-CARE Condition: Stable Scripts Metronidazole* (FLAGYL*) 500 Mg Tablet 500 MG ORAL BID, #14 TAB Prov: TYRELL SQUIRES M.D. 01/01/18 Ciprofloxacin Hcl* (CIPROFLOXACIN HCL*) 500 Mg Tablet 500 MG ORAL Q12H, #14 TAB 0 Refills Prov: TYRELL SQUIRES M.D. 01/01/18 Referrals: [facility],REFERR[facility] (PCP) Patient Instructions: DIET, Vomiting or Diarrhea [6yr-Adult] Additional Instructions: Follow up with your doctor in 3-7 days. Return if worse. TYRELL SQUIRES M.D. January 01, 2018 01:53
[2018-01-01 01:57] VITALS: BP 128/74
[2018-01-01] MEDS ORDERED: Ketorolac 30mg Inj IV ONE (02:00)
[2018-01-01 02:18] LABS: HEMATOCRIT 40.6 % (37.0-47.0); MEAN CORPUSCULAR VOLUME 81 FL (80-99); PLATELET COUNT 284 K/UL (150-450); RED BLOOD COUNT 5.03 M/UL (4.20-5.40); RED CELL DISTRIBUTION WIDTH 13.5 % (11.6-14.8); WHITE BLOOD COUNT 9.1 K/UL (4.8-10.8)
[2018-01-01 02:19] LABS: APPEARANCE,URINE CLEAR; BILIRUBIN, URINE NEGATIVE (NEGATIVE); GLUCOSE, URINE (UA) NEGATIVE (NEGATIVE); KETONES,URINE NEGATIVE (NEGATIVE); LEUKOCYTE ESTERASE ,URINE 1+ (NEGATIVE); NITRITE,URINE NEGATIVE (NEGATIVE); PH,URINE 8 (4.5-8.0); PROTEIN,URINE 1+ (NEGATIVE); UROBILINOGEN,URINE NORMAL MG/DL (0.0-1.0)
[2018-01-01 02:24] LABS: ANION GAP 10 mmol/L (5-15); BLOOD UREA NITROGEN 9 mg/dL (7-18); CALCIUM 8.8 MG/DL (8.5-10.1); CARBON DIOXIDE 25 MMOL/L (21-32); CHLORIDE 100 MMOL/L (98-107); CREATININE 0.7 MG/DL (0.55-1.30); POTASSIUM 4.1 MMOL/L (3.5-5.1); SODIUM 135 MMOL/L (136-145)
[2018-01-01 02:26] LABS: COLOR,URINE YELLOW
[2018-01-01 02:28] LABS: ALANINE AMINOTRANSFERASE 24 U/L (12-78); ALBUMIN 3.5 G/DL (3.4-5.0); ALBUMIN/GLOBULIN RATIO 0.8 (1.0-2.7); ALKALINE PHOSPHATASE 97 U/L (46-116); ASPARTATE AMINO TRANSFERASE 19 U/L (15-37); BILIRUBIN,TOTAL 0.4 MG/DL (0.2-1.0)
[2018-01-01] MEDS ORDERED: CIPROFLOXACIN500 M2 ORAL (03:28)
[2018-01-01] MEDS ORDERED: METRONIDAZOLE500 MG ORAL (03:28)
[2018-01-01 03:39] VITALS: BP 129/77
[2018-01-01 03:40] VITALS: BP 129/77
--- NOTE | 2018-01-01 08:38 | Diagnostic Imaging Report ---
Indication: Abdominal pain Technique: Continuous helical transaxial imaging of the abdomen and pelvis was obtained from the lung bases to the pubic symphysis. No intravenous contrast was administered. Coronal 2-D reformats were also obtained. Automatic Exposure Control was utilized. Total Dose length Product (DLP): 941.[address] Dose Index Volume (CTDIvol): 19.28 mGy Comparison: 10/20/2017 Findings: Multiple gallstones again demonstrated. No definite CT evidence for cholecystitis but please correlate clinically. The lung bases are clear. No nephrolithiasis or hydronephrosis appreciated. No evidence of bowel obstruction, free fluid or free air. No inflammatory changes appreciated. Appendix is slightly prominent. The luminal diameter of the appendix is about 9 mm, but this measurement includes the the lumen which is filled with either air or a radiopaque focus which may be an appendicolith. Therefore the wall thickness is likely normal. There is no inflammation surrounding the appendix. Doubtful but correlate for early acute appendicitis. IMPRESSION: Slightly prominent appendix. By imaging, the findings are doubtful for acute appendicitis but please correlate clinically. Gallstones. No evidence of cholecystitis by CT. Other incidental findings as above. [facility] has communicated the preliminary results to the Emergency Department. Their findings are largely concordant with this report. The CT scanner at [facility] is accredited by the [employer] and the scans are performed using dose optimization techniques as appropriate to a performed exam including Automatic Exposure control.
== END 2018-01-01 03:40 | disposition home or self-care (01) ==
LOC: EMR 01:50
DX: K52.9 Noninfective gastroenteritis and colitis, unspecified (principal); K21.9 Gastro-esophageal reflux disease without esophagitis; K80.20 Calculus of gallbladder without cholecystitis without obstruction; Z88.0 Allergy status to penicillin
CPT/HCPCS: 36415; 74176; 80053; 81003; 83690; 85025; 96374; 96375; 99284; J1885; J2405

== ENCOUNTER 2018-02-23 10:21 | Emergency (ER) | payer OTHER ==
[~2018-02-23] VITALS: Ht 142.2 cm; Wt 70.3 kg
[~2018-02-23 10:21] MED LIST changes: +CIPROFLOXACIN500 M2 ORAL; +METRONIDAZOLE500 MG ORAL
[2018-02-23] MEDS ORDERED: NKM (10:28)
[2018-02-23 10:30] VITALS: BP 126/64
[2018-02-23] MEDS ORDERED: Isovue-300 100ml vial INJ PRN (11:00)
[2018-02-23 11:26] LABS: BASOPHILS % (AUTO) 1.2 % (0.0-2.0); EOSINOPHILS % (AUTO) 2.8 % (0.0-3.0); HEMATOCRIT 40.6 % (37.0-47.0); LYMPHOCYTES % (AUTO) 24.3 % (20.0-45.0); MEAN CORPUSCULAR VOLUME 82 FL (80-99); MONOCYTES % (AUTO) 6.4 % (1.0-10.0); NEUTROPHILS % (AUTO) 65.4 % (45.0-75.0); PLATELET COUNT 346 K/UL (150-450); RED BLOOD COUNT 4.96 M/UL (4.20-5.40)
[2018-02-23 11:37] LABS: ANION GAP 10 mmol/L (5-15); BLOOD UREA NITROGEN 6 mg/dL (7-18); CALCIUM 9.1 MG/DL (8.5-10.1); CARBON DIOXIDE 23 MMOL/L (21-32); CHLORIDE 102 MMOL/L (98-107); CREATININE 0.6 MG/DL (0.55-1.30); POTASSIUM 3.8 MMOL/L (3.5-5.1); SODIUM 135 MMOL/L (136-145)
[2018-02-23 11:40] LABS: ALANINE AMINOTRANSFERASE 29 U/L (12-78); ALBUMIN 3.5 G/DL (3.4-5.0); ALBUMIN/GLOBULIN RATIO 0.8 (1.0-2.7); ALKALINE PHOSPHATASE 83 U/L (46-116); ASPARTATE AMINO TRANSFERASE 21 U/L (15-37); BILIRUBIN,TOTAL 0.3 MG/DL (0.2-1.0)
--- NOTE | 2018-02-23 12:14 | Diagnostic Imaging Report ---
EXAM: CT Abdomen and Pelvis With Intravenous Contrast CLINICAL HISTORY: PAIN TECHNIQUE: Axial computed tomography images of the abdomen and pelvis with intravenous contrast. CTDI is 17.20 mGy and DLP is 792 mGy-cm. One or more of the following dose reduction techniques were used: automated exposure control, adjustment of the mA and/or kV according to patient size, use of iterative reconstruction technique. COMPARISON: CT of the abdomen and pelvis dated 10/20/17 FINDINGS: Lung bases: Mild linear atelectasis in the right lower lobe. ABDOMEN: Liver: Unremarkable. No mass. Gallbladder and bile ducts: Cholelithiasis. No gallbladder wall thickening or ductal dilatation. Pancreas: Unremarkable. No mass. No ductal dilation. Spleen: Unremarkable. No splenomegaly. Adrenals: Unremarkable. No mass. Kidneys and ureters: Mild right renal cortical scarring. Kidneys otherwise appear unremarkable. No hydronephrosis. Stomach and bowel: Mild diffuse colonic wall thickening which may be related to underdistended loops. PELVIS: Appendix: No findings to suggest acute appendicitis. Bladder: Unremarkable. No mass. Reproductive: The uterus and ovaries are not identified and may be surgically absent. ABDOMEN and PELVIS: Intraperitoneal space: Unremarkable. No free air. No significant fluid collection. Bones/joints: No acute fracture. No dislocation. Soft tissues: Unremarkable. Vasculature: Unremarkable. No abdominal aortic aneurysm. Lymph nodes: Unremarkable. No enlarged lymph nodes. IMPRESSION: 1. Mild diffuse colonic wall thickening which may be related to underdistended loops. Cannot exclude a mild infectious or inflammatory colitis. No adjacent inflammatory changes, free air, or fluid collections. 2. Cholelithiasis. No gallbladder wall thickening or ductal dilatation.
[2018-02-23] MEDS ORDERED: ZOFRAN4 MG ORAL (13:31)
[2018-02-23] MEDS ORDERED: ZOFRAN4 MG/5 ML ORAL (13:31)
[2018-02-23] MEDS ORDERED: DICYCLOMINE HCL10 MG PO (13:31)
[2018-02-23 13:48] VITALS: BP 126/64
--- NOTE | 2018-02-23 14:41 | Emergency Room Report ---
History of Present Illness General Chief Complaint: Abdominal Pain Present Illness HPI Patient 57-year-old female presented after increased abdominal pain. Patient gradual onset of symptoms. She reports having increased pain for several days. She reports having increased vomiting as well as diarrhea. She denies any fever. Allergies: Coded Allergies: PENICILLINS (Verified Allergy, Unknown, Rash, 08/30/16) Patient History Past Medical History: see triage record Last Menstrual Period: 2003 Reviewed Nursing Documentation: PMH: Agreed; PSxH: Agreed Nursing Documentation-PMH Hx Cardiac Problems: No Hx Gastrointestinal Problems: Yes - Gerd, Constipation, Hysterectomy Review of Systems All Other Systems: negative except mentioned in HPI Physical Exam Vital Signs Date Time Temp Pulse Resp B/P (MAP) Pulse Ox O2 Delivery O2 Flow Rate FiO2 02/23/18 10:24 98.2 85 17 126/64 96 Room Air 98.2 Sp02 EP Interpretation: reviewed, normal General Appearance: normal inspection, well appearing, no apparent distress, alert, GCS 15 Head: atraumatic ENT: normal ENT inspection, hearing grossly normal, normal voice Neck: normal inspection, full range of motion, supple, no bony tend Respiratory: normal inspection, lungs clear, normal breath sounds, no respiratory distress, no retraction, no wheezing Cardiovascular #1: regular rate, rhythm, no edema Gastrointestinal: normal inspection, normal bowel sounds, non tender, soft, no guarding, no hernia Genitourinary: no CVA tenderness Musculoskeletal: normal inspection, back normal, normal range of motion Neurologic: normal inspection, alert, oriented x3, responsive, technical supervisor III-XII nml as tested, speech normal Psychiatric: normal inspection, judgement/insight normal, mood/affect normal Skin: normal inspection, normal color, no rash Medical Decision Making Diagnostic Impression: Primary Impression: Gastroenteritis ER Course Patient presented for abdominal pain. Differential diagnoses included ischemic bowel, appendicitis, perforated viscus, abdominal aortic aneurysm, inferior myocardial infarction, viral gastroenteritis Because of complexity of patient's case laboratory testing and imaging studies were ordered. The previous imaging was reviewed and patient was noted to have some evidence of appendiceal swelling. CT the abdomen pelvis was ordered to evaluate for any changes. CT the abdomen pelvis read by radiology showed no evidence to suggest acute appendicitis. Uterus and ovaries are not identified. The patient was given IV fluids with improvement in her symptoms.The patient is advised to follow up with primary care doctor in 1-2 days. Patient is advised to return if any worsening condition or if any changes in status that are concerning. This report is dictated with [employer] industrial engineering analyst software which may occasionally lead to discrepancies related to use of this software. Labs Test 02/23/18 11:08 White Blood Count 8.0 K/UL (4.8-10.8) Red Blood Count 4.96 M/UL (4.20-5.40) Hemoglobin 13.0 G/DL (12.0-16.0) Hematocrit 40.6 % (37.0-47.0) Mean Corpuscular Volume 82 FL (80-99) Mean Corpuscular Hemoglobin 26.3 PG (27.0-31.0) Mean Corpuscular Hemoglobin Concent 32.1 G/DL (32.0-36.0) Red Cell Distribution Width 13.0 % (11.6-14.8) Platelet Count 346 K/UL (150-450) Mean Platelet Volume 5.9 FL (6.5-10.1) Neutrophils (%) (Auto) 65.4 % (45.0-75.0) Lymphocytes (%) (Auto) 24.3 % (20.0-45.0) Monocytes (%) (Auto) 6.4 % (1.0-10.0) Eosinophils (%) (Auto) 2.8 % (0.0-3.0) Basophils (%) (Auto) 1.2 % (0.0-2.0) Prothrombin Time 10.0 SEC (9.30-11.50) Prothromb Time International Ratio 1.0 (0.9-1.1) Activated Partial Thromboplast Time 26 SEC (23-33) Sodium Level 135 MMOL/L (136-145) Potassium Level 3.8 MMOL/L (3.5-5.1) Chloride Level 102 MMOL/L (98-107) Carbon Dioxide Level 23 MMOL/L (21-32) Anion Gap 10 mmol/L (5-15) Blood Urea Nitrogen 6 mg/dL (7-18) Creatinine 0.6 MG/DL (0.55-1.30) Estimat Glomerular Filtration Rate > 60 mL/min (>60) Glucose Level 137 MG/DL (74-106) Calcium Level 9.1 MG/DL (8.5-10.1) Total Bilirubin 0.3 MG/DL (0.2-1.0) Aspartate Amino Transf (AST/SGOT) 21 U/L (15-37) Alanine Aminotransferase (ALT/SGPT) 29 U/L (12-78) Alkaline Phosphatase 83 U/L (46-116) Total Protein 7.9 G/DL (6.4-8.2) Albumin 3.5 G/DL (3.4-5.0) Globulin 4.4 g/dL Albumin/Globulin Ratio 0.8 (1.0-2.7) Last Vital Signs Date Time Temp Pulse Resp B/P (MAP) Pulse Ox O2 Delivery O2 Flow Rate FiO2 02/23/18 13:48 98.2 74 17 126/64 96 Room Air 98.2 Status: improved Disposition: HOME, SELF-CARE Condition: Stable Scripts Ondansetron (Zofran) 4 Mg Tablet 4 MG ORAL Q6H PRN for Nausea & Vomiting, #30 TAB 0 Refills Prov: Kun Green MD 02/23/18 Dicyclomine Hcl* (DICYCLOMINE HCL*) 10 Mg Capsule 10 MG PO QID, #20 CAP Prov: Kun Green MD 02/23/18 Patient Instructions: Abdominal Pain, Adult Kun Green MD Feb 23, 2018 14:41
== END 2018-02-23 13:49 | disposition home or self-care (01) ==
LOC: EMR 11:00
DX: K52.9 Noninfective gastroenteritis and colitis, unspecified (principal); R19.7 Diarrhea, unspecified; R11.10 Vomiting, unspecified; Z88.0 Allergy status to penicillin; K21.9 Gastro-esophageal reflux disease without esophagitis; Z90.710 Acquired absence of both cervix and uterus
CPT/HCPCS: 36415; 74177; 80053; 85025; 85610; 85730; 96374; 99284; J2405; Q9967

== ENCOUNTER 2019-06-25 08:45 | Emergency (ER) | payer OTHER ==
[~2019-06-25] VITALS: Ht 134.6 cm; Wt 77.1 kg
[~2019-06-25 08:45] MED LIST changes: +DICYCLOMINE HCL10 MG PO; +ZOFRAN4 MG ORAL; +ZOFRAN4 MG/5 ML ORAL
--- NOTE | 2019-06-25 09:00 | NUR ---
ED Nurse Note: pt presents to ED c/o chest congestion that she rates an 8/10.per pt the px radiates to her upper and lower back. pt denies getting a flu vaccine this year, she denies cough or any SOB of breath at this time. she does state that her entire body is feeling "aching." pt has taken advil, theraflu and tylenol without any relief of symptoms
[2019-06-25 09:30] VITALS: BP 129/80
--- NOTE | 2019-06-25 09:40 | NUR ---
ED Nurse Note: pt reports still being in pain, ERMD notified
[2019-06-25 09:43] VITALS: BP 134/68
[2019-06-25 09:48] LABS: ANION GAP 9 mmol/L (5-15); BLOOD UREA NITROGEN 9 mg/dL (7-18); CALCIUM 9.2 MG/DL (8.5-10.1); CARBON DIOXIDE 27 MMOL/L (21-32); CHLORIDE 101 MMOL/L (98-107); CREATININE 0.6 MG/DL (0.55-1.30); POTASSIUM 3.9 MMOL/L (3.5-5.1); SODIUM 137 MMOL/L (136-145)
[2019-06-25 09:59] LABS: ALANINE AMINOTRANSFERASE 23 U/L (12-78); ALBUMIN 3.6 G/DL (3.4-5.0); ALBUMIN/GLOBULIN RATIO 0.8 (1.0-2.7); ALKALINE PHOSPHATASE 102 U/L (46-116); ASPARTATE AMINO TRANSFERASE 20 U/L (15-37); BILIRUBIN,TOTAL 0.5 MG/DL (0.2-1.0)
[2019-06-25 10:02] LABS: EOSINOPHILS % (AUTO) 3.2 % (0.0-3.0); HEMATOCRIT 41.3 % (37.0-47.0); HEMOGLOBIN 13.8 G/DL (12.0-16.0); LYMPHOCYTES % (AUTO) 21.7 % (20.0-45.0); MEAN CORPUSCULAR VOLUME 81 FL (80-99); MONOCYTES % (AUTO) 8.9 % (1.0-10.0); NEUTROPHILS % (AUTO) 65.1 % (45.0-75.0); PLATELET COUNT 321 K/UL (150-450); RED BLOOD COUNT 5.13 M/UL (4.20-5.40); RED CELL DISTRIBUTION WIDTH 13.1 % (11.6-14.8); WHITE BLOOD COUNT 6.6 K/UL (4.8-10.8)
--- NOTE | 2019-06-25 10:03 | Emergency Room Report ---
History of Present Illness General Chief Complaint: Flu Like Symptoms Source: Patient Present Illness HPI 58yo F with hyperlipidemia p/w 3-4 day h/o cough, congestion, sputum production , myalgias, and nausea with subjective fever. Denies vomiting, diarrhea, hemoptysis, urinary symptoms, abd pain. Tried OTC meds with partial relief. Allergies: Coded Allergies: PENICILLINS (Verified Allergy, Unknown, Rash, 08/30/16) Patient History Past Medical History: see triage record Last Menstrual Period: 2003 Now: No Reviewed Nursing Documentation: PMH: Agreed; PSxH: Agreed Nursing Documentation-PMH Past Medical History: No History, Except For Hx Cardiac Problems: Yes - HYPERCHOLESTEROLEMIA Hx Gastrointestinal Problems: Yes - Gerd, Constipation, Hysterectomy Review of Systems All Other Systems: negative except mentioned in HPI Physical Exam Vital Signs Date Time Temp Pulse Resp B/P (MAP) Pulse Ox O2 Delivery O2 Flow Rate FiO2 06/25/19 08:50 98.1 81 18 129/80 (96) 97 Room Air Sp02 EP Interpretation: reviewed, normal General Appearance: no apparent distress, alert, non-toxic Head: normocephalic Eyes: bilateral eye normal inspection, bilateral eye PERRL, bilateral eye EOMI ENT: normal ENT inspection, hearing grossly normal, normal pharynx, no angioedema, normal voice, moist mucus membranes Neck: normal inspection, full range of motion, supple, supple/symm/no masses Respiratory: chest non-tender, lungs clear, normal breath sounds, chest symmetrical, palpation of chest normal Cardiovascular #1: normal peripheral pulses, regular rate, rhythm Cardiovascular #2: 2+ radial (R), 2+ radial (L) Gastrointestinal: normal inspection, non tender, soft, no mass, no guarding, no rebound Rectal: deferred Genitourinary: normal inspection, no CVA tenderness Musculoskeletal: back normal, gait/station normal, normal range of motion, non- tender, no calf tenderness Neurologic: alert, responsive, chemical inspector III-XII nml as tested, motor strength/tone normal, sensory intact, speech normal Psychiatric: judgement/insight normal, memory normal, mood/affect normal Lymphatic: no adenopathy Medical Decision Making Diagnostic Impression: Primary Impression: Influenza-like symptoms ER Course Pt with flu like symptoms, well appearing, will dc with symptomatic treatments. Labs/EKG/CXR/flu swab negative, will give motrin, PMD f/u. EKG Diagnostic Results EKG Time: 09:25 EP Interpretation: no stemi Rate: normal Rhythm: NSR ST Segments: no acute changes ASA given to the pt in ED: No Rhythm Strip Diag. Results Rhythm Strip Time: 10:00 EP Interpretation: yes Rate: 85 Rhythm: NSR, no PVC's, no ectopy Chest X-Ray Diagnostic Results Chest X-Ray Diagnostic Results : Chest X-Ray Ordered: Yes # of Views/Limited/Complete: 1 View Indication: Other - cough EP Interpretation: Yes Interpretation: no consolidation, no effusion, no pneumothorax, no acute cardiopulmonary disease Impression: No acute disease Electronically Signed by: Dexter Ramesh MD Last Vital Signs Date Time Temp Pulse Resp B/P (MAP) Pulse Ox O2 Delivery O2 Flow Rate FiO2 06/25/19 09:43 24 134/68 Room Air 06/25/19 09:30 98.1 97 06/25/19 09:30 81 Disposition: HOME, SELF-CARE Condition: Stable Scripts No Active Prescriptions or Reported Meds Referrals: NON PHYSICIAN (PCP) DEXTER RAMESH M.D Jun 25, 2019 10:02
--- NOTE | 2019-06-25 10:47 | Diagnostic Imaging Report ---
Indication: Reason For Exam: CP Technique: Single AP view of the chest. Comparison: Chest radiograph dated 11/23/2016 Findings: The cardiomediastinal silhouette is within normal limits. There is no focal consolidation, pneumothorax or pleural effusion. Osseous structures demonstrate no acute abnormality. IMPRESSION: No radiographic evidence of acute cardiopulmonary process.
[2019-06-25] MEDS ORDERED: IBUPROFEN600 MG ORAL (11:24)
[2019-06-25] MEDS ORDERED: ALBUTEROL SULF8.5 GM INH (11:24)
[2019-06-25] MEDS ORDERED: SUDAFED 12 HOU120 M1 PO (11:24)
--- NOTE | 2019-06-25 11:44 | NUR ---
ER DISCHARGE NOTE: Patient is cleared to be discharged per ERMD, pt is aox4, on room air, with stable vital signs. pt was given dc and prescription instructions, pt was able to verbalize understanding, pt id band and iv site removed without complications. pt is able to ambulate with steady gait. pt took all belongings.
[2019-06-25 11:45] VITALS: BP 140/74
== END 2019-06-25 11:45 | disposition home or self-care (01) ==
LOC: EMR 09:20
DX: J11.1 Influenza due to unidentified influenza virus with other respiratory manifestations (principal); E78.00 Pure hypercholesterolemia, unspecified; K21.9 Gastro-esophageal reflux disease without esophagitis; Z90.710 Acquired absence of both cervix and uterus; E78.5 Hyperlipidemia, unspecified; Z88.0 Allergy status to penicillin
CPT/HCPCS: 36415; 71045; 80053; 83880; 84484; 85025; 86710; 93005; Z7502; 99283